=== PATIENT | male | born 1985 | race Caucasian/White ===

== ENCOUNTER 2017-06-03 06:46 | Emergency (ER) | payer SELFPAY ==
[~2017-06-03] VITALS: Ht 190.5 cm; Wt 73.9 kg
[~2017-06-03 06:46] MED LIST: CEPH500C PO; CLON1TAB2; HYDR1TAB PO
--- OUTSIDE RECORDS SUMMARY | 2017-06-03 06:56 | XMS REPORT ---
Author Author JACQUE RANDOLPH Organization [employer] Address Unknown Phone Unavailable Care Team Providers Care Production Assistant Name Role Phone JACQUE RANDOLPH CP Unavailable Allergies, Adverse Reactions, Alerts Substance Reaction Event Type Abilify 2 Mg Tablet dizziness Non Drug Allergy Problems Problem Type Condition Code Onset Dates Condition Status Assessment YOLANDA (generalized anxiety disorder) F41.1 Active Medications Medication Code System Code Instructions Start Date End Date Status Dosage Clonazepam [facility] [place] [address]-36 1 MG Orally 3 times a day PRN anxiety Must last 30 days 1 tablet Procedures Procedure Coding System Code Date Office Visit, Est Pt., Level 3 CPT-4 21913 Jan 14, 2015 Vital Signs Date/Time: Jan 14, 2015 Cardiac Monitoring Heart Rate 96 bpm Weight 228.4 lbs Height 75 in BMI 28.54 Index Blood Pressure Diastolic 100 mmHg Blood Pressure Systolic 140 mmHg Results No Known Results Summary Purpose [employer] Submission
--- OUTSIDE RECORDS SUMMARY | 2017-06-03 06:56 | XMS REPORT ---
Author Author MARYBETH ADAN Organization [employer] Address Unknown Phone Unavailable Care Team Providers Care Compensation Vice President Name Role Phone MARYBETH ADAN CP Unavailable Allergies, Adverse Reactions, Alerts Substance Reaction Event Type Abilify 2 Mg Tablet dizziness Non Drug Allergy Problems Problem Type Condition Code Onset Dates Condition Status Assessment Schizoaffective disorder, unspecified F25.9 Active Assessment Generalized anxiety disorder F41.1 Active Medications Medication Code System Code Instructions Start Date End Date Status Dosage Clonazepam [facility] [id number] 1 MG Orally 3 times a day PRN anxiety Must last 30 days 1 tablet Procedures Procedure Coding System Code Date Office Visit, Est Pt., Level 3 CPT-4 31751 Apr 02, 2015 Vital Signs Date/Time: Apr 02, 2015 Blood Pressure Systolic 130 mmHg Weight 221 lbs Height 75 in BMI 27.62 Index Blood Pressure Diastolic 88 mmHg Results No Known Results Summary Purpose [employer] Submission
--- OUTSIDE RECORDS SUMMARY | 2017-06-03 06:57 | XMS REPORT ---
Author Author JACQUE RANDOLPH Organization [employer] Address Unknown Phone Unavailable Care Team Providers Care Respiratory Therapist Name Role Phone JACQUE RANDOLPH Unavailable Allergies No Known Allergies Problems No Known Problems Medications Medication Code System Code Instructions Start Date End Date Status Dosage Clonazepam [facility] [place] [address]-53 1 MG Orally 2 times a day PRN anxiety Must last 30 days 1 tablet Results No Known Results Summary Purpose [employer] Submission
--- OUTSIDE RECORDS SUMMARY | 2017-06-03 06:57 | XMS REPORT ---
Author Author JACQUE RANDOLPH Organization [employer] Address Unknown Phone Unavailable Care Team Providers Care Oracle Database Architect Name Role Phone JACQUE RANODLPH CP Unavailable Allergies No Known Allergies Problems No Known Problems Medications No Known Medications Results No Known Results Summary Purpose [employer] Submission
--- OUTSIDE RECORDS SUMMARY | 2017-06-03 06:57 | XMS REPORT ---
Author Author CAYETANO ZAMORA Organization [employer] Address Unknown Phone Unavailable Care Team Providers Care Circular Sawyer Stone Name Role Phone CAYETANO ZAMORA Unavailable Allergies No Known Allergies Problems No Known Problems Medications Medication Code System Code Instructions Start Date End Date Status Dosage Clonazepam [facility] [address]-79 1 MG Orally 3 times a day PRN anxiety Must last 30 days 1 tablet Results No Known Results Summary Purpose [employer] Submission
--- OUTSIDE RECORDS SUMMARY | 2017-06-03 06:57 | XMS REPORT ---
Author Author CAYETANO ZAMORA Organization [employer] Address Unknown Phone Unavailable Care Team Providers Care Environmental Issues Instructor Name Role Phone CAYETANO ZAMORA Unavailable Allergies No Known Allergies Problems No Known Problems Medications No Known Medications Results No Known Results Summary Purpose [employer] Submission
--- OUTSIDE RECORDS SUMMARY | 2017-06-03 06:57 | XMS REPORT ---
Author Author BRENDON WILSON Organization [employer] Address Unknown Phone Unavailable Care Team Providers Care Cut Off Saw Tender Metal Name Role Phone BRENDON WILSON CP Unavailable Allergies, Adverse Reactions, Alerts Substance Reaction Event Type Abilify 2 Mg Tablet dizziness Non Drug Allergy Problems Problem Type Condition Code Onset Dates Condition Status Assessment Viral warts, unspecified type B07.9 Active Medications Medication Code System Code Instructions Start Date End Date Status Dosage Clonazepam [facility] [address]-51 1 MG Orally 3 times a day PRN anxiety Must last 30 days 1 tablet Procedures Procedure Coding System Code Date SHAVE F,E,E,N,L,M 0.6-1 CM CPT-4 82047 Feb 20, 2015 Office Visit, Est Pt., Level 3 CPT-4 69514 Feb 20, 2015 Vital Signs Date/Time: Feb 20, 2015 Temperature 96.9 F Weight 231 lbs Height 75 in BMI 28.87 Index Blood Pressure Diastolic 98 mmHg Blood Pressure Systolic 156 mmHg Cardiac Monitoring Heart Rate 100 bpm Results No Known Results Summary Purpose [employer]ClinicalWorks Submission
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
--- NOTE | 2017-06-03 07:12 | ED Fall/Injury ---
General Chief Complaint: Laceration Stated Complaint: NOSE INJURY,RT ARM INJURY-FALL Source: patient, family (uncle) Exam Limitations: no limitations History of Present Illness Date Seen by Provider: Jun 03, 2017 Time Seen by Provider: 07:12 Initial Comments The patient presents to the ER by private conveyance with a chief complaint that he tripped over a dog this morning while going to the bathroom fell and split his nose open. He also has some bruising and pain in his right forearm. He says he has a history of fractures in his arms but none recent. He still is full motion and feeling in his arm and hand and wrist. He says when he looked in the mirror this morning he had a lot of blood on his face from a large split in his nose. He is able to breathe through both of his nostrils easily. He says he is fractured his nose in the past. He did have a few alcoholic drinks yesterday before going to bed. Allergies and Home Medications Allergies Coded Allergies: No Known Drug Allergies (Unverified , 09/06/09) Home Medications Cephalexin Monohydrate 500 Mg Capsule, 1 EACH PO QID for 7 Days, Ref 0 Prescribed by: GUERDA GUZMAN on 10/13/09141 Clonazepam 1 Mg Tab.rapdis, NEEDED, (Reported) Hydrocodone Bit/Acetaminophen 1 Each Tablet, 1-2 EACH PO Q4HR PRN, #20 Ref 0 Prescribed by: GUERDA GUZMAN on 10/13/092 Constitutional: No chills, No diaphoresis Eyes: Denies Blindness, Denies Blurred Vision Ears, Nose, Mouth, Throat: denies ear pain, denies ear discharge Respiratory: No cough, No short of breath Cardiovascular: No chest pain, No palpitations Gastrointestinal: No nausea, No vomiting Past Xeijqpl-Zaplue-Qjzcje Hx Patient Social History Alcohol Use: Occasionally Uses Alcohol Beverage of Choice: Whiskey Recreational Drug Use: No Smoking Status: Current Everyday Smoker Type Used: Cigarettes Recent Foreign Travel: No Contact w/Someone Who Travel: No Physical Exam Vital Signs Vital Signs - First Documented 06/03/17 06:57 Temp 96.5 Pulse 100 Resp 18 B/P (MAP) 129/87 (101) O2 Delivery Room Air Capillary Refill : General Appearance: WD/WN, no apparent distress HEENT: PERRL/EOMI, TMs normal, pharynx normal, other (1 cm linear laceration on the bridge of the nose with some swelling and ecchymoses. No harding sign, raccoon years, hemotympanum or other evidence of a traumatic head other than the laceration of the nose.) Neck: non-tender, full range of motion, supple, normal inspection Cardiovascular: normal peripheral pulses, regular rate, rhythm Respiratory: chest non-tender, lungs clear, normal breath sounds Peripheral Pulses: 2+ Radial Pulses (R), 2+ Radial Pulses (L) Extremities: normal range of motion, non-tender, normal capillary refill, other (mild ecchymoses over the proximal radial head without soft tissue tenderness or lack of range of motion. Nontender to palpation of bones.) Neurologic/Psychiatric: no motor/sensory deficits, alert, oriented x 3 Laceration Repair : Wound Location: Nose Wound Length (cm): 2.5 Wound's Depth, Shape: sub Q Wound Explored: clean Betadine Prep?: Yes (chlorhexidine soap water) Anesthesia: 1% Lidocaine Volume Anesthetic (ccs): 3 Wound Debrided: minimal Suture: Prolene Suture Size: 5-0 Number of Sutures: 4 Progress The patient's wound was cleaned thoroughly by physical abrasion as well as chlorhexidine soap water and then allowed to soak for about 5 minutes. The wound was then infiltrated with 3 cc of 1% lidocaine and after the patient was ascertained to be numb he was draped out in typical sterile fashion. Sterile gloves were used and 5-0 Prolene was used to apply for simple uninterrupted sutures across his linear laceration reapproximating the tissues very well. Patient tolerated the procedure very well. Sterile dressing was applied and wound was hemostatic. Progress/Results/Core Measures Results/Orders My Orders Orders - YAMILET ELLINGTON Lidocaine 1% (Xylocaine 1%) (06/03/17 07:15) Dipht,Pertuss(Acell),Tet Adult (Boostrix (06/03/17 07:45) Medications Given in ED Current Medications Medications Dose Ordered Sig/So Route Start Time Stop Time Status Last Admin Dose Admin Diphtheria/ Tetanus/Acell Pertussis 0.5 ml ONCE ONCE IM 06/03/17 07:45 06/03/17 07:46 DC 06/03/17 07:54 0.5 ML Lidocaine HCl 50 ml ONCE ONCE IJ 2/23/18 07:15 06/03/17 07:16 DC 06/03/17 07:33 50 ML Vital Signs/I&O Vital Sign - Last 12Hours 06/03/17 06:57 Temp 96.5 Pulse 100 Resp 18 B/P (MAP) 129/87 (101) O2 Delivery Room Air Progress Note : Time: 08:01 Progress Note We'll give him a tetanus shot since he does not member when his last one was. The patient has declined any imaging of his forearm because he doesn't think it' s broken. He would like his nose laceration sewn up. Patient does not require imaging of his head despite possibility of having some alcohol on because he has no outward evidence of head injury, history of syncope or hematomas. Departure Impression Impression: Primary Impression: Fall Qualified Codes: W19.XXXA - Unspecified fall, initial encounter Additional Impressions: Nasal laceration Qualified Codes: S01.21XA - Laceration without foreign body of nose, initial encounter Traumatic ecchymosis of right forearm Qualified Codes: S50.11XA - Contusion of right forearm, initial encounter Disposition: 01 HOME, SELF-CARE Condition: Improved Departure-Patient Inst. Decision time for Depature: 08:04 Referrals: TOBIAS WATTS DO (PCP/Family) Primary Care Physician Patient Instructions: Laceration Repair With Stitches (DC) Add. Discharge Instructions: Keep the wound clean with soap and water. Do not use anything anti-septic such as hydrogen peroxide, alcohol, iodine etc. Cover the wound when you're out and about her and siobhan environments with a Band-Aid or Vaseline and gauze. Keep the skin edges moist with Vaseline. Do not use triple anabolic ointment or other medicated ointments on the wound. Return to care sooner if you begin to experience fevers, drainage or worsening pain and swelling from your wound. Plan to follow up either here in the ER or with your physician of choice in about 5 days for the stitches to come out. Tylenol 1000 mg every 6 hours and/or Motrin 800 mg every 8 hours is appropriate for the pain. Apply an ice pack for 20 minutes every 2-4 hours as needed to keep the swelling and pain down. All discharge instructions reviewed with patient and/or family. Voiced understanding. Scripts Acetaminophen with Codeine (Tylenol with Codeine #3 Tablet) 1 Each Tablet 1 EACH PO Q6H Y for BREAKTHROUGH PAIN, #10 TAB 0 Refills Prov: YAMILET ELLINGTON 06/03/17 Work/School Note: Work Release Form Date Seen in the Emergency Department: Jun 03, 2017 Return to Work: Jun 04, 2017 Restrictions: No Restrictions Copy Copies To 1: TOBIAS WATTS DO YAMILET ELLINGTON Jun 03, 2017 07:12
[2017-06-03] MEDS ORDERED: LIDOCAINE 1% INJ 50 ML (XYLOCAINE) VIAL IJ ONE (07:15)
[2017-06-03] MEDS ORDERED: TETANUS,DIPTH,PERTUSS P/F (BOOSTRIX) 0.5 ML VIAL IM ONE (07:45)
[2017-06-03] MEDS ORDERED: ACET-789 PO (08:06)
[2017-06-03 08:10] VITALS: BP 129/87
== END 2017-06-03 08:09 | disposition home or self-care (01) ==
LOC: EDUNIT# 06:46 → ER 06:53
DX: S01.21XA Laceration without foreign body of nose, initial encounter (principal); S50.11XA Contusion of right forearm, initial encounter; F17.210 Nicotine dependence, cigarettes, uncomplicated; Z23 Encounter for immunization; W01.0XXA Fall on same level from slipping, tripping and stumbling without subsequent striking against object, initial encounter
CPT/HCPCS: 12011; 90471; 90715

== ENCOUNTER 2018-05-23 16:59 | Emergency (ER) | payer OTHER ==
[~2018-05-23] VITALS: Ht 193 cm; Wt 72.6 kg
[~2018-05-23 16:59] MED LIST changes: +ACET-789 PO
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
[2018-05-23] MEDS ORDERED: predniSONE 20 MG TAB PO ONE (17:30)
[2018-05-23] MEDS ORDERED: diphenhydrAMINE 25 MG TAB (BENADRYL) PO ONE (17:30)
--- NOTE | 2018-05-23 18:02 | ED Integumentary General ---
General Chief Complaint: Skin/Wound Problems Stated Complaint: RASH Nursing Triage Note: PT REPORTS RASH THAT STARTED ON HIS BACK THIS AM AND HAS NOW SPREAD ALL OVER HIS BODY. PT STATES HE HAS HAD NO CHANGE IN MEDICATION, LAUNDRY SOAPS, LOTIONS, OR DIET. Source: patient Exam Limitations: no limitations History of Present Illness Date Seen by Provider: May 23, 2018 Time Seen by Provider: 17:40 Allergies and Home Medications Allergies Coded Allergies: No Known Drug Allergies (Unverified , 09/06/09) Home Medications Acetaminophen with Codeine 1 Each Tablet, 1 EACH PO Q6H PRN for BREAKTHROUGH PAIN Prescribed by: YAMILET ELLINGTON on 06/03/17 0806 Clonazepam 1 Mg Tab.rapdis, NEEDED, (Reported) Past Ypyqhmf-Wwvxjg-Ipnjch Hx Patient Social History Alcohol Use: Regular Use Number of Drinks Today: GG Alcohol Beverage of Choice: Whiskey Recreational Drug Use: Yes Drug of Choice: MARIJUANA Smoking Status: Current Everyday Smoker Type Used: Cigarettes Recent Foreign Travel: No Contact w/Someone Who Travel: No Recent Infectious Disease Expo: No Recent Hopitalizations: No Physical Abuse: No Sexual Abuse: No Immunizations Up To Date Tetanus Booster (TDap): Unknown Seasonal Allergies Seasonal Allergies: No Past Medical History Surgeries: Yes Orthopedic Respiratory: No Cardiac: No Neurological: No Genitourinary: No Gastrointestinal: No Musculoskeletal: No Endocrine: No HEENT: No Cancer: No Psychosocial: Yes Anxiety Integumentary: No Blood Disorders: No Physical Exam Vital Signs Vital Signs - First Documented 05/23/18 17:06 Temp 98.6 Pulse 100 Resp 16 B/P (MAP) 150/74 (99) Pulse Ox 100 Capillary Refill : Less Than 3 Seconds Procedures/Interventions Suture Size: 5-0 Progress/Results/Core Measures Results/Orders My Orders Orders - RHIANNA JOHNSON Diphenhydramine Tablet (Benadryl Tablet) (05/23/18 17:30) Prednisone Tablet (Deltasone Tablet) (05/23/18 17:30) Medications Given in ED Current Medications Medications Dose Ordered Sig/So Route Start Time Stop Time Status Last Admin Dose Admin Diphenhydramine HCl 50 mg ONCE ONCE PO 05/23/18 17:30 05/23/18 17:31 DC 05/23/18 17:50 50 MG Prednisone 40 mg ONCE ONCE PO 05/23/18 17:30 05/23/18 17:31 DC 05/23/18 17:50 40 MG Vital Signs/I&O 05/23/18 17:06 Temp 98.6 Pulse 100 Resp 16 B/P (MAP) 150/74 (99) Pulse Ox 100 Blood Pressure Mean: 99 Departure Impression Primary Impression: Contact dermatitis Disposition: 01 HOME, SELF-CARE Condition: Stable/Unchanged Departure-Patient Inst. Decision time for Depature: 17:57 Referrals: TOBIAS WATTS DO (PCP/Family) Primary Care Physician Patient Instructions: Contact Dermatitis (DC) Add. Discharge Instructions: Continue to use the topical hydrocortisone cream. Take medications as directed. You may continue to use Benadryl [id number] as directed by the bottle for itching. Follow-up with your primary care provider within 1 week for recheck. Return back to the emergency room for worsening symptoms or concerns as needed. All discharge instructions reviewed with patient and/or family. Voiced understanding. Scripts Prednisone (Prednisone) 20 Mg Tab 40 MG PO DAILY for 4 Days, #8 TAB Prov: RHIANNA JOHNSON 05/23/18 RHIANNA JOHNSON May 23, 2018 18:02
[2018-05-23] MEDS ORDERED: PRD20T PO (18:03)
[2018-05-23 18:06] VITALS: BP 150/74
== END 2018-05-23 18:06 | disposition home or self-care (01) ==
LOC: EDUNIT# 16:59 → ER 17:02
DX: L25.9 Unspecified contact dermatitis, unspecified cause (principal); F41.9 Anxiety disorder, unspecified; F12.10 Cannabis abuse, uncomplicated; F17.210 Nicotine dependence, cigarettes, uncomplicated; Z98.890 Other specified postprocedural states
CPT/HCPCS: 99283